=== PATIENT | female | born 1940 | race Two or more races ===

== ENCOUNTER 2023-05-16 18:12 | Emergency (ER) | payer OTHER ==
[~2023-05-16] VITALS: Ht 149.9 cm; Wt 57.2 kg
[2023-05-16 21:27] LABS: HEMATOCRIT 30.2 % (36.0-45.00); HEMOGLOBIN 10.1 g/dL (12.0-15.00); MEAN CELL VOLUME 91.4 fL (80.00-100.00); MEAN CORPUSCULAR HEMOGLOBIN 30.6 pg (27.00-32.0); MEAN CORPUSCULAR HGB CONC 33.4 g/dl (32.0-36.0); PLATELET COUNT 261 K/uL (150-450); RED CELL DISTRIBUTION WIDTH 14.7 % (11.5-14.5)
[2023-05-16] MEDS ORDERED: ZYRTEC10 MG PO (22:32)
[2023-05-16] MEDS ORDERED: MUCINEX DM ER1 EACH PO (22:32)
[2023-05-16] MEDS ORDERED: NASAL MIST126 ML NASAL (22:32)
== END 2023-05-16 22:46 | disposition home or self-care (01) ==
LOC: ER 18:13
PROVIDERS: Nurse Practitioner Family
DX: U07.1 COVID-19 (principal); E11.9 Type 2 diabetes mellitus without complications; I10 Essential (primary) hypertension; Z88.2 Allergy status to sulfonamides; Z87.898 Personal history of other specified conditions